=== PATIENT | female | born 1965 | race African-American/Black ===

== ENCOUNTER 2022-05-03 16:00 | Inpatient (IN) | payer OTHER ==
[2022-05-03 17:09] VITALS: BMI 23.0
[2022-05-03] MEDS ORDERED: IBUPROFEN 600 MG TABLET (FP) PO PRN (18:07)
[2022-05-03] MEDS ORDERED: P-EPHED 60MG/TRIPROLIDI 2.5MG TABLET PO PRN (18:07)
[2022-05-03] MEDS ORDERED: BENZOCAINE/MENTHOL (CHLORASEPTIC ) LOZENGE MM PRN (18:07)
[2022-05-03] MEDS ORDERED: IBUPROFEN 400 MG TABLET (FP) PO PRN (18:07)
[2022-05-03] MEDS ORDERED: NICOTINE POLACRILEX 2 MG GUM BUC PRN (18:07)
[2022-05-03] MEDS ORDERED: ACETAMINOPHEN 325 MG TABLET (FP) PO PRN (18:07)
[2022-05-03] MEDS ORDERED: BISMUTH SUBSALICYLATE 524 MG/30 ML PO PRN (18:07)
[2022-05-03] MEDS ORDERED: MAGNESIUM HYDROX 2400MG/30ML ORAL SUSPENSION 30 ML CUP PO PRN (18:07)
[2022-05-03] MEDS ORDERED: NICOTINE 10 MG CARTRIDGE (INHALER) IH PRN (18:07)
[2022-05-03] MEDS ORDERED: DICYCLOMINE HCL 10 MG CAPSULE PO PRN (18:07)
[2022-05-03] MEDS ORDERED: ONDANSETRON *ODT* 4 MG TABLET SL PRN (18:07)
[2022-05-03] MEDS ORDERED: LOPERAMIDE HCL 2 MG CAPSULE PO PRN (18:07)
[2022-05-03] MEDS ORDERED: MAGNESIUM CITRATE 300 ML BOTTLE PO PRN (18:07)
[2022-05-03] MEDS ORDERED: cloNIDine HCL 0.1 MG TABLET PO PRN (18:10)
[2022-05-03] MEDS ORDERED: methaDONE HCL 10 MG TABLET (FOR DETOX USE ONLY) PO ONE (19:30)
[2022-05-03] MEDS: diazePAM 5 MG TABLET PO PRN ×2 (19:37→23:25)
[2022-05-03] MEDS: hydrOXYzine PAMOATE 25 MG CAPSULE (FP) PO PRN ×2 (19:42→23:26)
[2022-05-03] MEDS: METHOCARBAMOL 500 MG TABLET PO PRN (19:42)
[2022-05-03] MEDS: THIAMINE HCL 100 MG TABLET (FP) PO SCH (23:26)
[2022-05-03] MEDS: MELATONIN 5 MG TABLETS PO PRN (23:26)
[2022-05-04] MEDS: diazePAM 5 MG TABLET PO PRN ×3 (05:44→23:04)
[2022-05-04] MEDS: ACETAMINOPHEN 325 MG TABLET (FP) PO PRN ×2 (05:46→18:01)
[2022-05-04] MEDS: PRENATAL VITAMINS W/ FOLIC ACID TABLET (FP) PO SCH (11:00)
[2022-05-04] MEDS: METHOCARBAMOL 500 MG TABLET PO PRN ×2 (11:02→17:59)
[2022-05-04 16:28] LABS: HEMOGLOBIN 12.3 GM/dL (10.7-15.3); MCHC 32.3 g/dl (32.0-36.0); MEAN CELL VOLUME 86.7 fl (80-96); MEAN PLT VOLUME 8.6 fl (7.5-11.1); PLATELET COUNT 332 10^3/uL (134-434); RBC 4.39 M/mm3 (3.60-5.2); RDW 14.4 % (11.6-15.6); WHITE BLOOD COUNT 5.9 K/mm3 (4.0-10.0)
[2022-05-04 16:33] LABS: CALCIUM 9.4 mg/dL (8.5-10.1)
[2022-05-04 16:34] LABS: ALBUMIN 3.2 g/dl (3.4-5.0); BLOOD UREA NITROGEN 22.4 mg/dL (7-18)
[2022-05-04 16:37] LABS: CREATININE 0.8 mg/dL (0.55-1.3)
[2022-05-04 16:39] LABS: BILIRUBIN,TOTAL 0.2 mg/dL (0.2-1); TOT PROT 6.5 g/dl (6.4-8.2)
[2022-05-04 17:01] LABS: SYPHILIS W/ RPR CONF REACTIVE (NONREACTIVE)
[2022-05-04] MEDS: hydrOXYzine PAMOATE 25 MG CAPSULE (FP) PO PRN ×2 (17:58→23:04)
[2022-05-04] MEDS: MAG HYDROX/AL HYDROX/SIMETH 30 ML UNIT-DOSE CUP PO PRN ×2 (18:02→23:32)
[2022-05-04 21:36] LABS: HIV INTERPRETATION NEGATIVE (NEGATIVE)
[2022-05-04] MEDS: MELATONIN 5 MG TABLETS PO PRN (23:04)
[2022-05-04] MEDS: THIAMINE HCL 100 MG TABLET (FP) PO SCH (23:05)
[2022-05-05] MEDS ORDERED: methaDONE HCL 10 MG TABLET (FOR DETOX USE ONLY) PO ONE (10:00)
[2022-05-05] MEDS: diazePAM 5 MG TABLET PO PRN (10:27)
[2022-05-05] MEDS: PRENATAL VITAMINS W/ FOLIC ACID TABLET (FP) PO SCH (10:27)
[2022-05-05] MEDS: MELATONIN 5 MG TABLETS PO PRN (23:02)
[2022-05-05] MEDS: THIAMINE HCL 100 MG TABLET (FP) PO SCH (23:02)
[2022-05-06 07:17] VITALS: BP 154/94; PULSE 76; RESP 18; TEMP 98.4
[2022-05-06] MEDS: PRENATAL VITAMINS W/ FOLIC ACID TABLET (FP) PO SCH (12:05)
== END 2022-05-06 10:30 | disposition home or self-care (01) | DRG 773 ==
LOC: YASAS 16:00 → Y6N 18:51
PROVIDERS: ADMIT Allergy & Immunology; ATTEND Psychiatry & Neurology Pain Medicine
PROC: HZ2ZZZZ Detoxification Services for Substance Abuse Treatment (ICD-10-PCS; principal; 2022-05-03)
DX: F11.23 Opioid dependence with withdrawal (principal); F14.20 Cocaine dependence, uncomplicated; F10.10 Alcohol abuse, uncomplicated; F17.210 Nicotine dependence, cigarettes, uncomplicated; Z28.310 Unvaccinated for COVID-19
CPT/HCPCS: 36415; 80053; 85027; 86593; 86780; 87389; C9803-CS; U0003; U0005